=== PATIENT | male | born 1960 | race African-American/Black ===

== ENCOUNTER 2022-05-12 11:16 | Inpatient (IN) | payer OTHER, MEDICAID ==
[~2022-05-12] VITALS: Ht 182.9 cm; Wt 85.5 kg
[2022-05-12] MEDS ORDERED: AMIODARONE 450mg/250ml AE 250 ML IV SCH (12:00)
[2022-05-12] MEDS ORDERED: AMIODARONE HCL 150 MG in D5W 5% 100 ML IV ONE (12:00)
[2022-05-12] MEDS ORDERED: LABETALOL HCL 5 MG/ML 4ML SYRINGE IV ONE (12:00)
[2022-05-12 12:08] LABS: Basophils # (auto) 0 10 ^3/uL (0-0.2); Basophils % (auto) 0.6 % (0.0-2.0); Eosinophils # (auto) 0.1 10 ^3/uL (0-0.8); Eosinophils % (auto) 1.5 % (0.0-7.0); Hematocrit 40.6 % (41.0-53.0); Hemoglobin 13.3 g/dL (13.5-17.5); Lymphocytes # (auto) 1.5 10 ^3/uL (0.4-5.4); Lymphocytes % (auto) 23.7 % (10.0-50.0); Mean Corpuscular Hgb Conc. 32.9 g/dL (32.0-36.0); Mean Corpuscular Volume 88.2 fL (80.0-100.0); Monocytes # (auto) 0.5 10 ^3/uL (0-1.3); Monocytes % (auto) 8.1 % (0.0-12.0); Neutrophils # (auto) 4.3 10 ^3/uL (1.6-8.6); Neutrophils % (auto) 66.1 % (37.0-80.0); Red Cell Distribution Width 14.1 % (11.8-14.3); White Blood Cell 6.5 10^3/uL (4.4-10.8)
[2022-05-12] MEDS ORDERED: ONDANSETRON HCL 4 MG/2 ML VIAL IV ONE (12:15)
[2022-05-12] MEDS ORDERED: MORPHINE SULFATE INJ 2 MG/ml SYRG IV ONE (12:15)
[2022-05-12 12:22] LABS: Potassium 3.5 mmol/L (3.5-5.1)
[2022-05-12 12:23] LABS: INR 1.08 (0.9-1.15); Partial Thromboplastin Time 27.3 sec (24.6-33.4)
[2022-05-12 12:25] LABS: Albumin 3.6 g/dL (3.4-5.0); BUN/Creatinine Ratio 18.9; Calcium 9.1 mg/dL (8.5-10.1); Magnesium 1.5 mg/dL (1.6-2.6)
[2022-05-12 12:27] LABS: Bilirubin, Total 1.5 mg/dL (0.2-1.0); Total Protein 6.6 g/dL (6.4-8.2)
[2022-05-12] MEDS ORDERED: ENOXAPARIN SOD 100 MG/1 ML SYRINGE SC ONE (13:00)
[2022-05-12] MEDS ORDERED: MORPHINE SULFATE 4 MG/ML SYR/VIAL IV ONE (13:45)
[2022-05-12 13:57] LABS: Urine Bacteria NONE SEEN /hpf (None Seen); Urine Blood Negative /uL (Negative); Urine Hyaline Cast FEW /lpf (0 - 2); Urine Specific Gravity 1.008 (1.001-1.035); Urine WBC <1 /hpf (0 - 3)
[2022-05-12] MEDS ORDERED: ACETAMINOPHEN 325 MG TAB PO PRN (14:15)
[2022-05-12] MEDS ORDERED: DEXTROSE (50%) 50ML SYRG IV PRN (14:15)
[2022-05-12] MEDS ORDERED: FUROSEMIDE 100 MG/10ML VIAL IV ONE (14:15)
[2022-05-12] MEDS: ACCU-CHEK COMFORT CURVE STRIP VI SCH ×2 (17:12→22:00)
[2022-05-12] MEDS: InsuLIN REG 1unit/0.01ml Soln (100units/ml) SC SCH ×3 (17:19→22:00)
[2022-05-12] MEDS: MORPHINE SULFATE INJ 2 MG/ml SYRG IV PRN (17:52)
[2022-05-12] MEDS: ONDANSETRON HCL 4 MG/2 ML VIAL IV PRN ×2 (18:00→21:34)
[2022-05-12] MEDS: AMIODARONE 450mg/250ml AE 250 ML IV SCH (20:11)
[2022-05-12] MEDS: HYDROcodone-ACET 5/325MG TAB PO PRN (20:59)
[2022-05-12] MEDS ORDERED: APIXABAN 5 MG TAB PO SCH (22:00)
[2022-05-12 23:53] VITALS: BP 102/65
[2022-05-13] MEDS: HYDROcodone-ACET 5/325MG TAB PO PRN (02:41)
[2022-05-13 05:00] VITALS: BP 97/55
[2022-05-13 05:14] LABS: Basophils # (auto) 0 10 ^3/uL (0-0.2); Basophils % (auto) 0.6 % (0.0-2.0); Eosinophils # (auto) 0.1 10 ^3/uL (0-0.8); Eosinophils % (auto) 1.1 % (0.0-7.0); Hemoglobin 12.7 g/dL (13.5-17.5); Lymphocytes # (auto) 1.8 10 ^3/uL (0.4-5.4); Lymphocytes % (auto) 25.2 % (10.0-50.0); Mean Corpuscular Hemoglobin 29.6 pg (28.0-32.0); Mean Corpuscular Hgb Conc. 33.3 g/dL (32.0-36.0); Monocytes # (auto) 0.6 10 ^3/uL (0-1.3); Monocytes % (auto) 8.2 % (0.0-12.0); Neutrophils # (auto) 4.6 10 ^3/uL (1.6-8.6); Neutrophils % (auto) 64.9 % (37.0-80.0); Nucleated Red Blood Cells % 0.2 %; Red Blood Cells 4.27 10^6/uL (4.5-5.90); Red Cell Distribution Width 14.1 % (11.8-14.3)
[2022-05-13 05:33] LABS: Albumin 3.3 g/dL (3.4-5.0); Calcium 8.5 mg/dL (8.5-10.1)
[2022-05-13 05:36] LABS: BUN/Creatinine Ratio 19.2
[2022-05-13 05:37] LABS: Bilirubin, Total 1.5 mg/dL (0.2-1.0)
[2022-05-13] MEDS: ACCU-CHEK COMFORT CURVE STRIP VI SCH ×4 (07:38→22:15)
[2022-05-13 08:00] VITALS: BP 84/54
[2022-05-13] MEDS: ONDANSETRON HCL 4 MG/2 ML VIAL IV PRN (08:25)
[2022-05-13] MEDS: CARVEDILOL 3.125 MG TAB PO SCH ×2 (09:36→21:52)
[2022-05-13] MEDS ORDERED: ENOXAPARIN SOD 40 MG/0.4 ML SYRINGE SC SCH (10:00)
[2022-05-13] MEDS: SOD CHL 0.45% 1,000 ML IV SCH ×2 (10:41)
[2022-05-13] MEDS: ENOXAPARIN SOD 80 MG/0.8ML SYRINGE SC SCH ×2 (10:41→21:57)
[2022-05-13] MEDS ORDERED: LATA0.0019 EACHEYE (11:20)
[2022-05-13] MEDS ORDERED: APIX5TAB PO (11:20)
[2022-05-13] MEDS ORDERED: METF-370 PO (11:20)
[2022-05-13] MEDS ORDERED: DIGO0.12 PO (11:20)
[2022-05-13] MEDS ORDERED: METO2.5T PO (11:20)
[2022-05-13] MEDS ORDERED: FAMO-12 PO (11:20)
[2022-05-13] MEDS ORDERED: SEMA2INJ SC (11:20)
[2022-05-13] MEDS ORDERED: FLUT1AER13 INH (11:20)
[2022-05-13] MEDS ORDERED: FURO1TAB31 PO (11:20)
[2022-05-13] MEDS ORDERED: GLIP10TA9 PO (11:20)
[2022-05-13] MEDS ORDERED: LINA5TAB PO (11:20)
[2022-05-13 11:30] LABS: Albumin 3.4 g/dL (3.4-5.0); BUN/Creatinine Ratio 19.8; Calcium 8.5 mg/dL (8.5-10.1); Magnesium 1.5 mg/dL (1.6-2.6)
[2022-05-13 11:33] LABS: Bilirubin, Total 1.6 mg/dL (0.2-1.0); Total Protein 6.1 g/dL (6.4-8.2)
[2022-05-13 12:00] VITALS: BP 108/77
[2022-05-13] MEDS: MORPHINE SULFATE INJ 2 MG/ml SYRG IV PRN ×2 (12:08→21:52)
[2022-05-13] MEDS: AMIODARONE 450mg/250ml AE 250 ML IV SCH (12:16)
[2022-05-13] MEDS: DIGOXIN 0.125 MG TAB PO SCH (12:16)
[2022-05-13] MEDS: DOCUSATE SOD 100 MG CAP PO PRN (12:17)
[2022-05-13] MEDS: InsuLIN REG 1unit/0.01ml Soln (100units/ml) SC SCH ×3 (12:32→23:11)
[2022-05-13 16:00] VITALS: BP 98/59
[2022-05-13 22:00] VITALS: BP 109/93
[2022-05-14 05:00] VITALS: BP 93/72
[2022-05-14] MEDS: DOCUSATE SOD 100 MG CAP PO PRN ×2 (05:45→20:06)
[2022-05-14] MEDS: ACCU-CHEK COMFORT CURVE STRIP VI SCH ×4 (05:46→22:00)
[2022-05-14] MEDS: InsuLIN REG 1unit/0.01ml Soln (100units/ml) SC SCH ×4 (06:04→22:00)
[2022-05-14 08:00] VITALS: BP 104/77
[2022-05-14] MEDS: HYDROcodone-ACET 5/325MG TAB PO PRN (10:27)
[2022-05-14] MEDS: DIGOXIN 0.125 MG TAB PO SCH (10:38)
[2022-05-14] MEDS: AMIODARONE HCL 200 MG TAB PO SCH ×2 (10:39→23:10)
[2022-05-14] MEDS: CARVEDILOL 3.125 MG TAB PO SCH ×2 (10:46→22:00)
[2022-05-14 12:00] VITALS: BP 109/75
[2022-05-14] MEDS ORDERED: APIXABAN 5 MG TAB PO SCH (13:30)
[2022-05-14 16:00] VITALS: BP 97/76
[2022-05-14] MEDS: MORPHINE SULFATE INJ 2 MG/ml SYRG IV PRN (16:04)
[2022-05-14] MEDS ORDERED: FUROSEMIDE 20 MG TAB PO ONE (16:15)
[2022-05-14] MEDS ORDERED: guaiFENesin-DM 100/10mg/5ml SYR PO PRN (16:15)
[2022-05-14 22:00] VITALS: BP 102/75
[2022-05-14] MEDS: APIXABAN 5 MG TAB PO SCH (23:10)
[2022-05-15 05:00] VITALS: BP 114/76
[2022-05-15] MEDS: MORPHINE SULFATE INJ 2 MG/ml SYRG IV PRN (05:31)
[2022-05-15] MEDS: DOCUSATE SOD 100 MG CAP PO PRN (05:33)
[2022-05-15] MEDS: InsuLIN REG 1unit/0.01ml Soln (100units/ml) SC SCH ×3 (06:37→17:32)
[2022-05-15] MEDS: ACCU-CHEK COMFORT CURVE STRIP VI SCH ×3 (06:44→17:32)
[2022-05-15 09:00] VITALS: BP 113/69
[2022-05-15] MEDS: AMIODARONE HCL 200 MG TAB PO SCH (09:09)
[2022-05-15] MEDS: DIGOXIN 0.125 MG TAB PO SCH (09:09)
[2022-05-15] MEDS: APIXABAN 5 MG TAB PO SCH (09:09)
[2022-05-15] MEDS: CARVEDILOL 3.125 MG TAB PO SCH (09:10)
[2022-05-15] MEDS ORDERED: FUROSEMIDE 20 MG/2 ML VIAL IV ONE (10:45)
[2022-05-15] MEDS ORDERED: LACTULOSE 20Gm/30ML SOLN PO ONE (10:45)
[2022-05-15 13:00] VITALS: BP 115/80
[2022-05-15 16:36] VITALS: BP 102/54
[2022-05-15 17:26] VITALS: BP 115/80
[2022-05-16] MEDS ORDERED: metOLazone 5 MG TAB PO SCH (10:00)
== END 2022-05-15 18:55 | disposition home or self-care (01) | DRG 291 ==
LOC: EDSEX 11:16 → EDBD 11:16 → ER 11:16 → TELE 14:13 → TELE-WESTW 22:53
PROVIDERS: ADMIT Internal Medicine; ATTEND Nurse Practitioner Acute Care
PROC: 4B02XTZ Measurement of Cardiac Defibrillator, External Approach (ICD-10-PCS; principal; 2022-05-13)
DX: I13.0 Hypertensive heart and chronic kidney disease with heart failure and stage 1 through stage 4 chronic kidney disease, or unspecified chronic kidney disease (principal); I50.21 Acute systolic (congestive) heart failure; N17.9 Acute kidney failure, unspecified; I48.0 Paroxysmal atrial fibrillation; I42.8 Other cardiomyopathies; E83.42 Hypomagnesemia; Z20.822 Contact with and (suspected) exposure to COVID-19; N18.32 Chronic kidney disease, stage 3b; J44.9 Chronic obstructive pulmonary disease, unspecified; E11.22 Type 2 diabetes mellitus with diabetic chronic kidney disease; Z95.810 Presence of automatic (implantable) cardiac defibrillator; Z83.3 Family history of diabetes mellitus
CPT/HCPCS: 36415; 71045; 80053; 80162; 81001; 82962; 83036; 83735; 83880; 84443; 84484; 85025; 85610; 85730; 93005; 93306; 96365; 96375; 99291; G0378; J1815; J2405; J3490; J7060

== ENCOUNTER 2022-05-23 08:47 | Emergency (ER) | payer OTHER, MEDICAID ==
[~2022-05-23] VITALS: Ht 182.9 cm; Wt 80.0 kg
[~2022-05-23 08:47] MED LIST: APIX5TAB PO; DIGO0.12 PO; FAMO-12 PO; FLUT1AER13 INH; FURO1TAB31 PO; GLIP10TA9 PO; LATA0.0019 EACHEYE; LINA5TAB PO; METF-370 PO; METO2.5T PO; SEMA2INJ SC
[2022-05-23 09:50] VITALS: BP 101/78
[2022-05-23] MEDS ORDERED: NAPR500T31 PO (11:15)
[2022-05-23] MEDS ORDERED: ACET-1080 PO (11:20)
== END 2022-05-23 11:29 | disposition home or self-care (01) ==
LOC: ER 08:47
DX: I82.611 Acute embolism and thrombosis of superficial veins of right upper extremity (principal)
CPT/HCPCS: 93971

== ENCOUNTER 2022-09-19 14:19 | Inpatient (IN) | payer OTHER ==
[~2022-09-19] VITALS: Ht 188 cm; Wt 80.4 kg
[~2022-09-19 14:19] MED LIST changes: +ACET-1080 PO
[2022-09-19 15:07] LABS: Basophils # (auto) 0 10 ^3/uL (0-0.2); Basophils % (auto) 0.5 % (0.0-2.0); Eosinophils # (auto) 0 10 ^3/uL (0-0.8); Eosinophils % (auto) 0.5 % (0.0-7.0); Hematocrit 41.3 % (41.0-53.0); Hemoglobin 13.6 g/dL (13.5-17.5); Lymphocytes # (auto) 1.2 10 ^3/uL (0.4-5.4); Lymphocytes % (auto) 18.1 % (10.0-50.0); Mean Corpuscular Hgb Conc. 32.8 g/dL (32.0-36.0); Mean Corpuscular Volume 91.5 fL (80.0-100.0); Monocytes # (auto) 0.6 10 ^3/uL (0-1.3); Monocytes % (auto) 8.9 % (0.0-12.0); Neutrophils # (auto) 4.9 10 ^3/uL (1.6-8.6); Nucleated Red Blood Cells % 0.2 %; Red Blood Cells 4.52 10^6/uL (4.5-5.90); Red Cell Distribution Width 15.3 % (11.8-14.3); White Blood Cell 6.7 10^3/uL (4.4-10.8)
[2022-09-19 15:24] LABS: Alanine Aminotransferase 111 U/L (16-61); Albumin 2.7 g/dL (3.4-5.0); Anion Gap 10 (5-15); Aspartate Aminotransferase 37 U/L (15-37); BUN/Creatinine Ratio 16.4; Blood Urea Nitrogen 22 mg/dL (7-18); Calcium 8.3 mg/dL (8.5-10.1); Carbon Dioxide 22 mmol/L (21-32); Chloride 103 mmol/L (98-107); GFR African American 69 mL/min; GFR Non-African American 57 mL/min; Potassium 4.5 mmol/L (3.5-5.1); Sodium 135 mmol/L (136-145)
[2022-09-19 15:25] LABS: Alkaline Phosphatase 75 U/L (45-117); Bilirubin, Total 1.4 mg/dL (0.2-1.0); Total Protein 5.5 g/dL (6.4-8.2)
[2022-09-19 15:48] LABS: Glucose 402 mg/dL (74-106)
[2022-09-19] MEDS ORDERED: ACETAMINOPHEN 325 MG TAB PO PRN (16:00)
[2022-09-19] MEDS ORDERED: MORPHINE SULFATE INJ 2 MG/ml SYRG IV PRN (16:00)
[2022-09-19] MEDS ORDERED: NITROGLYCERIN 0.4 MG SL TAB SL PRN (16:00)
[2022-09-19] MEDS ORDERED: ENOXAPARIN SOD 100 MG/1 ML SYRINGE SC ONE (16:15)
[2022-09-19] MEDS ORDERED: METOPROLOL TARTRATE 1MG/1ML-5ML VIAL IV ONE (21:00)
[2022-09-19] MEDS ORDERED: SODIUM CHLORIDE 0.9% 250 ML IV ONE (21:00)
[2022-09-19] MEDS ORDERED: dilTIAZem 25 MG/5 ML VIAL IV ONE (21:15)
[2022-09-19] MEDS ORDERED: DIGOXIN (250MCG/ML) 2 ML AMPULE IV ONE ×2 (21:15→21:30)
[2022-09-19] MEDS: FUROSEMIDE 40 MG/4 ML VIAL IV SCH ×3 (22:00→23:43)
[2022-09-19] MEDS: dilTIAZem 125mg/125ml BAG KIT 125 ML IV SCH (22:08)
[2022-09-20] MEDS: ONDANSETRON HCL 4 MG/2 ML VIAL IV PRN ×2 (01:20→06:39)
[2022-09-20 02:44] LABS: Urine WBC None Seen /hpf (0 - 3)
[2022-09-20 02:58] LABS: Urine Bacteria NONE SEEN /hpf (None Seen); Urine Blood Negative /uL (Negative); Urine Specific Gravity 1.015 (1.001-1.035)
[2022-09-20] MEDS ORDERED: DEXTROSE (50%) 50ML SYRG IV ONE (03:45)
[2022-09-20] MEDS ORDERED: IOHEXOL 350 MG/ML 100ML IJ ONE (04:50)
[2022-09-20 06:25] LABS: Basophils # (auto) 0 10 ^3/uL (0-0.2); Basophils % (auto) 0.7 % (0.0-2.0); Eosinophils # (auto) 0.1 10 ^3/uL (0-0.8); Hematocrit 40.9 % (41.0-53.0); Lymphocytes # (auto) 1.3 10 ^3/uL (0.4-5.4); Lymphocytes % (auto) 18.9 % (10.0-50.0); Mean Corpuscular Hemoglobin 29.3 pg (28.0-32.0); Mean Corpuscular Hgb Conc. 31.9 g/dL (32.0-36.0); Mean Corpuscular Volume 91.9 fL (80.0-100.0); Monocytes % (auto) 14.2 % (0.0-12.0); Neutrophils # (auto) 4.7 10 ^3/uL (1.6-8.6); Neutrophils % (auto) 65.2 % (37.0-80.0); Nucleated Red Blood Cells % 0.1 %; Red Blood Cells 4.46 10^6/uL (4.5-5.90); Red Cell Distribution Width 15.4 % (11.8-14.3); White Blood Cell 7.2 10^3/uL (4.4-10.8)
[2022-09-20] MEDS: MORPHINE SULFATE INJ 2 MG/ml SYRG IV PRN (06:43)
[2022-09-20 06:50] LABS: Albumin 2.6 g/dL (3.4-5.0); Calcium 8.1 mg/dL (8.5-10.1); Potassium 4.3 mmol/L (3.5-5.1)
[2022-09-20 06:51] LABS: BUN/Creatinine Ratio 18.6; Bilirubin, Total 1.2 mg/dL (0.2-1.0); Total Protein 5.5 g/dL (6.4-8.2)
[2022-09-20] MEDS ORDERED: InsuLIN REG 1unit/0.01ml Soln (100units/ml) SC ONE (07:00)
[2022-09-20] MEDS ORDERED: ACCU-CHEK COMFORT CURVE STRIP VI ONE (07:00)
[2022-09-20] MEDS: FUROSEMIDE 40 MG/4 ML VIAL IV SCH ×3 (08:29→21:53)
[2022-09-20] MEDS ORDERED: dilTIAZem HCL 180MG ER CAP PO ONE (11:45)
[2022-09-20] MEDS: HYDROcodone-ACET 5/325MG TAB PO PRN ×2 (12:00→15:52)
[2022-09-20] MEDS ORDERED: THROAT LOZENGES(CEPASTAT) MT PRN ×2 (15:00)
[2022-09-20] MEDS ORDERED: FLUT1AER17 INH (15:24)
[2022-09-20] MEDS: dilTIAZem 125mg/125ml BAG KIT 125 ML IV SCH (15:45)
[2022-09-20 16:12] VITALS: BP 107/67
[2022-09-20 17:00] VITALS: BP 99/63
[2022-09-20] MEDS: SORE THROAT SPRAY 6OZ BOTTLE MT PRN (20:17)
[2022-09-20] MEDS: APIXABAN 5 MG TAB PO SCH (21:52)
[2022-09-20] MEDS: AMIODARONE HCL 200 MG TAB PO SCH (21:52)
[2022-09-20 22:00] VITALS: BP 97/72
[2022-09-20] MEDS ORDERED: FLUTICASONE SALMETEROL IN SCH (22:00)
[2022-09-21] MEDS: MORPHINE SULFATE INJ 2 MG/ml SYRG IV PRN ×3 (01:43→20:44)
[2022-09-21 05:00] VITALS: BP 106/73
[2022-09-21] MEDS: SORE THROAT SPRAY 6OZ BOTTLE MT PRN ×3 (05:15→21:21)
[2022-09-21] MEDS: FUROSEMIDE 40 MG/4 ML VIAL IV SCH ×3 (06:05→21:30)
[2022-09-21 07:30] VITALS: BP 106/73
[2022-09-21 09:00] VITALS: BP 117/67
[2022-09-21] MEDS: LINAGLIPTIN BASE 5 MG PO SCH (09:53)
[2022-09-21] MEDS ORDERED: LATANOPROST 0.005 % OPTH(EYE) SOL 2.5ML EACHEYE SCH (10:00)
[2022-09-21] MEDS: metOLazone 5 MG TAB PO SCH (10:07)
[2022-09-21] MEDS: glipiZIDE 5 MG TAB PO SCH (10:09)
[2022-09-21] MEDS: APIXABAN 5 MG TAB PO SCH ×2 (10:09→21:20)
[2022-09-21] MEDS: AMIODARONE HCL 200 MG TAB PO SCH ×2 (10:09→21:20)
[2022-09-21] MEDS: FLUTICASONE FUROATE IN SCH (10:10)
[2022-09-21] MEDS: [UNRECOGNIZED DRUG - OTHER] IN SCH (10:10)
[2022-09-21] MEDS: UMECLIDINIUM IN SCH (10:10)
[2022-09-21] MEDS: VILANTEROL IN SCH (10:10)
[2022-09-21 13:00] VITALS: BP 117/60
[2022-09-21] MEDS: dilTIAZem 125mg/125ml BAG KIT 125 ML IV SCH (13:28)
[2022-09-21] MEDS: GABAPENTIN 300 MG CAP PO SCH ×2 (14:10→21:20)
[2022-09-21 17:00] VITALS: BP 113/83
[2022-09-21] MEDS: ONDANSETRON HCL 4 MG/2 ML VIAL IV PRN (20:34)
[2022-09-21] MEDS: LATANOPROST 0.005 % OPTH(EYE) SOL 2.5ML EACHEYE SCH (21:21)
[2022-09-21 22:00] VITALS: BP 112/70
[2022-09-22] MEDS ORDERED: METOPROLOL TARTRATE 1MG/1ML-5ML VIAL IV PRN (00:45)
[2022-09-22 01:00] LABS: Magnesium 1.6 mg/dL (1.6-2.6); Potassium 4.1 mmol/L (3.5-5.1)
[2022-09-22] MEDS: MORPHINE SULFATE INJ 2 MG/ml SYRG IV PRN ×2 (01:00→13:31)
[2022-09-22] MEDS: MAGNESIUM SULFATE 1GM/100ML 100 ML IV SCH ×2 (01:59→03:05)
[2022-09-22 05:00] VITALS: BP 95/70
[2022-09-22] MEDS: GABAPENTIN 300 MG CAP PO SCH ×3 (05:24→21:40)
[2022-09-22] MEDS: FUROSEMIDE 40 MG/4 ML VIAL IV SCH ×3 (05:24→21:41)
[2022-09-22] MEDS: HYDROcodone-ACET 5/325MG TAB PO PRN ×2 (06:07→17:22)
[2022-09-22 07:57] LABS: BUN/Creatinine Ratio 16.9; Calcium 8.2 mg/dL (8.5-10.1); Potassium 4.2 mmol/L (3.5-5.1)
[2022-09-22 08:00] VITALS: BP 107/46
[2022-09-22] MEDS: LINAGLIPTIN BASE 5 MG PO SCH (09:36)
[2022-09-22] MEDS: UMECLIDINIUM IN SCH (09:36)
[2022-09-22] MEDS: FLUTICASONE FUROATE IN SCH (09:36)
[2022-09-22] MEDS: [UNRECOGNIZED DRUG - OTHER] IN SCH (09:36)
[2022-09-22] MEDS: VILANTEROL IN SCH (09:36)
[2022-09-22] MEDS: APIXABAN 5 MG TAB PO SCH ×2 (09:37→21:39)
[2022-09-22] MEDS: AMIODARONE HCL 200 MG TAB PO SCH ×2 (09:37→21:40)
[2022-09-22] MEDS: metOLazone 5 MG TAB PO SCH (09:41)
[2022-09-22] MEDS: glipiZIDE 5 MG TAB PO SCH (09:42)
[2022-09-22] MEDS ORDERED: DIGOXIN 0.125 MG TAB PO SCH (10:00)
[2022-09-22 12:00] VITALS: BP 106/64
[2022-09-22 16:00] VITALS: BP 120/72
[2022-09-22] MEDS: LATANOPROST 0.005 % OPTH(EYE) SOL 2.5ML EACHEYE SCH (21:40)
[2022-09-22] MEDS: SORE THROAT SPRAY 6OZ BOTTLE MT PRN (21:40)
[2022-09-22 22:00] VITALS: BP 119/78
[2022-09-23] MEDS: HYDROcodone-ACET 5/325MG TAB PO PRN ×2 (00:39→21:11)
[2022-09-23] MEDS: FUROSEMIDE 40 MG/4 ML VIAL IV SCH ×4 (06:00→20:59)
[2022-09-23 06:03] LABS: BUN/Creatinine Ratio 16.7; Basophils # (auto) 0 10 ^3/uL (0-0.2); Basophils % (auto) 0.4 % (0.0-2.0); Calcium 8.5 mg/dL (8.5-10.1); Eosinophils # (auto) 0.1 10 ^3/uL (0-0.8); Eosinophils % (auto) 1.2 % (0.0-7.0); Hematocrit 40.7 % (41.0-53.0); Hemoglobin 13.6 g/dL (13.5-17.5); Lymphocytes # (auto) 1.2 10 ^3/uL (0.4-5.4); Lymphocytes % (auto) 16.8 % (10.0-50.0); Magnesium 1.9 mg/dL (1.6-2.6); Mean Corpuscular Hemoglobin 30.3 pg (28.0-32.0); Mean Corpuscular Hgb Conc. 33.4 g/dL (32.0-36.0); Mean Corpuscular Volume 90.9 fL (80.0-100.0); Monocytes # (auto) 0.7 10 ^3/uL (0-1.3); Monocytes % (auto) 9.9 % (0.0-12.0); Neutrophils % (auto) 71.7 % (37.0-80.0); Nucleated Red Blood Cells % 0.1 %; Potassium 3.8 mmol/L (3.5-5.1); Red Blood Cells 4.48 10^6/uL (4.5-5.90); Red Cell Distribution Width 14.8 % (11.8-14.3)
[2022-09-23] MEDS: GABAPENTIN 300 MG CAP PO SCH ×3 (06:12→20:58)
[2022-09-23 09:00] VITALS: BP 101/59
[2022-09-23] MEDS: AMIODARONE HCL 200 MG TAB PO SCH ×2 (09:41→20:58)
[2022-09-23] MEDS: APIXABAN 5 MG TAB PO SCH ×2 (09:42→20:59)
[2022-09-23] MEDS: UMECLIDINIUM IN SCH (09:43)
[2022-09-23] MEDS: FLUTICASONE FUROATE IN SCH (09:43)
[2022-09-23] MEDS: [UNRECOGNIZED DRUG - OTHER] IN SCH (09:43)
[2022-09-23] MEDS: SORE THROAT SPRAY 6OZ BOTTLE MT PRN (09:43)
[2022-09-23] MEDS: VILANTEROL IN SCH (09:43)
[2022-09-23] MEDS: metOLazone 5 MG TAB PO SCH (09:43)
[2022-09-23] MEDS: glipiZIDE 5 MG TAB PO SCH (09:50)
[2022-09-23] MEDS: LINAGLIPTIN BASE 5 MG PO SCH (09:53)
[2022-09-23] MEDS ORDERED: MAGNESIUM OXIDE 400 MG TAB PO ONE (11:30)
[2022-09-23] MEDS ORDERED: POTASSIUM EFFERVESENT TAB 25 MEQ PO ONE (11:30)
[2022-09-23] MEDS ORDERED: clonazePAM 0.5 MG TAB PO PRN (12:15)
[2022-09-23 13:00] VITALS: BP 99/69
[2022-09-23] MEDS: LIDOCAINE 5% TOPICAL PATCH TOP SCH (14:45)
[2022-09-23 17:00] VITALS: BP 97/69
[2022-09-23] MEDS: LATANOPROST 0.005 % OPTH(EYE) SOL 2.5ML EACHEYE SCH (20:59)
[2022-09-24] MEDS: MORPHINE SULFATE INJ 2 MG/ml SYRG IV PRN ×2 (02:28→18:31)
[2022-09-24] MEDS: GABAPENTIN 300 MG CAP PO SCH ×2 (06:19→15:01)
[2022-09-24] MEDS: FUROSEMIDE 40 MG/4 ML VIAL IV SCH ×2 (06:20→15:01)
[2022-09-24] MEDS: AMIODARONE HCL 200 MG TAB PO SCH (08:35)
[2022-09-24] MEDS: HYDROcodone-ACET 5/325MG TAB PO PRN (08:35)
[2022-09-24] MEDS: APIXABAN 5 MG TAB PO SCH (08:35)
[2022-09-24] MEDS: LIDOCAINE 5% TOPICAL PATCH TOP SCH (08:35)
[2022-09-24] MEDS: metOLazone 5 MG TAB PO SCH (08:36)
[2022-09-24] MEDS: glipiZIDE 5 MG TAB PO SCH (08:36)
[2022-09-24] MEDS: LINAGLIPTIN BASE 5 MG PO SCH (08:37)
[2022-09-24] MEDS: VILANTEROL IN SCH (08:37)
[2022-09-24] MEDS: FLUTICASONE FUROATE IN SCH (08:37)
[2022-09-24] MEDS: [UNRECOGNIZED DRUG - OTHER] IN SCH (08:37)
[2022-09-24] MEDS: UMECLIDINIUM IN SCH (08:37)
[2022-09-24 12:15] LABS: BUN/Creatinine Ratio 17.3; Calcium 8.3 mg/dL (8.5-10.1)
[2022-09-24 17:00] VITALS: BP 107/71
[2022-09-24 18:31] VITALS: BP 122/68
== END 2022-09-24 20:15 | disposition home health service (06) | DRG 291 ==
LOC: ER 14:19 → TELE 16:02 → TELE-CENTR 09-20 13:55
PROVIDERS: ADMIT Internal Medicine; ATTEND Internal Medicine
DX: I13.0 Hypertensive heart and chronic kidney disease with heart failure and stage 1 through stage 4 chronic kidney disease, or unspecified chronic kidney disease (principal); I50.43 Acute on chronic combined systolic (congestive) and diastolic (congestive) heart failure; E87.1 Hypo-osmolality and hyponatremia; I48.20 Chronic atrial fibrillation, unspecified; I42.0 Dilated cardiomyopathy; E11.22 Type 2 diabetes mellitus with diabetic chronic kidney disease; Z20.822 Contact with and (suspected) exposure to COVID-19; E11.65 Type 2 diabetes mellitus with hyperglycemia; E88.09 Other disorders of plasma-protein metabolism, not elsewhere classified; N18.9 Chronic kidney disease, unspecified; J44.9 Chronic obstructive pulmonary disease, unspecified; B96.89 Other specified bacterial agents as the cause of diseases classified elsewhere; D64.9 Anemia, unspecified; K52.9 Noninfective gastroenteritis and colitis, unspecified; Z79.01 Long term (current) use of anticoagulants; Z90.49 Acquired absence of other specified parts of digestive tract; Z91.14 Patient's other noncompliance with medication regimen; Z95.810 Presence of automatic (implantable) cardiac defibrillator
CPT/HCPCS: 36415; 71045; 71275; 73080; 73560; 73600; 80048; 80053; 80162; 81001; 82962; 83735; 83880; 84132; 84484; 85025; 85379; 87426; 93005; 93306; 93970; 96372; 97110; 97116; 97163; 97530; 99291; G0378; J2405